=== PATIENT | female | born 1940 | race Caucasian/White ===

== ENCOUNTER 2021-02-13 02:31 | Emergency (ER) | payer OTHER ==
[~2021-02-13] VITALS: Ht 167.6 cm; Wt 83.9 kg
[2021-02-13 03:35] LABS: ABSOLUTE NEUTROPHILS 6.8 thou/uL (1.4-8.2); BASOPHILS 0.7 % (0.0-2.0); EOSINOPHILS 1.2 % (0.0-3.0); HEMATOCRIT 38.9 % (37.0-47.0); HEMOGLOBIN 12.9 gm/dL (12.0-15.0); MCH 27.7 pg (26.0-34.0); MCHC 33.3 g/dL (28.0-37.0); MCV 83.4 fL (80.0-100.0); MONOCYTES 6.2 % (1.0-8.0); PLATELET COUNT 208 thou/uL (150-400); POLYS 78.9 % (36.0-66.0); RBC 4.66 mil/uL (4.20-5.00); RDW 14.9 % (10.5-14.5); WBC 8.6 thou/uL (4.0-11.0)
[2021-02-13 03:44] LABS: CALCIUM 8.5 mg/dL (8.5-10.1); CREATININE 1.1 mg/dL (0.6-1.0)
[2021-02-13 03:50] LABS: ALBUMIN 3.5 g/dL (3.4-5.0); TOTAL BILIRUBIN 0.3 mg/dL (0.2-1.0); TOTAL PROTEIN 7.1 g/dL (6.4-8.2)
[2021-02-13 04:41] LABS: URINE BILIRUBIN NEGATIVE (Negative); URINE BLOOD NEGATIVE (Negative); URINE CLARITY CLEAR; URINE COLOR YELLOW; URINE GLUCOSE-RANDOM* NEGATIVE (Negative); URINE KETONES NEGATIVE (Negative); URINE LEUKOCYTES-REFLEX NEGATIVE (Negative); URINE NITRITE-REFLEX NEGATIVE (Negative); URINE PROTEIN (DIPSTICK) TRACE (Negative); URINE SPECIFIC GRAVITY >= 1.030 (1.005-1.035); URINE UROBILINOGEN 0.2 E.U./dl (0.2-1.0)
[2021-02-13 06:48] VITALS: BP 110/47
--- NOTE | 2021-02-13 07:14 | EKG ---
[address] [place] [address] ELECTROCARDIOGRAM REPORT Name: ROSALVA COREY Room #: [facility] MIKKI Betancourt#: [id number] Admission: 02/13/21 Attend Phys: Discharge: 02/13/21 Date of : 36 Report #: [id number] [facility] ED Test Date: 2021-02-13 Test Time: 03:03:43 Pat Name: ROSALVA COREY Department: Room: Gender: F Radio Division Captain: lindsey : 1940 Requested By: Bony Perez Order Number: [id number] MD: Dexter Freitas Measurements Intervals [place] Rate: 74 P: -1 OR: 216 QRS: 23 QRSD: 107 T: 31 QT: 390 QTc: 433 Interpretive Statements Sinus rhythm Borderline prolonged OR interval Probable left ventricular hypertrophy No previous ECG available for comparison Electronically Signed On 02-13-2021 7:14:08 CDT by Dexter Freitas [email or web address] <ELECTRONICALLY SIGNED> By: Dexter Freitas MD, [facility] 02/13/21 0714 [id number] Dexter Freitas MD, FACC /EPI
[2021-02-13] MEDS ORDERED: LOVASTATIN40 MG PO (11:15)
[2021-02-13] MEDS ORDERED: LEVOTHYROXINE50 MCG PO (11:15)
[2021-02-13] MEDS ORDERED: NORVASC5 MG PO (11:15)
== END 2021-02-13 06:49 | disposition still patient (30) ==
LOC: ER 02:31
PROVIDERS: Emergency Medicine
DX: F03.91 Unspecified dementia, unspecified severity, with behavioral disturbance (principal); I10 Essential (primary) hypertension; Z88.0 Allergy status to penicillin; Z20.822 Contact with and (suspected) exposure to COVID-19; Z88.2 Allergy status to sulfonamides; Z88.8 Allergy status to other drugs, medicaments and biological substances

== ENCOUNTER 2021-02-13 07:01 | Inpatient (IN) | payer OTHER ==
[~2021-02-13] VITALS: Ht 160 cm; Wt 63.8 kg
[2021-02-13 10:49] VITALS: BP 152/58
--- NOTE | 2021-02-13 10:53 | NUR ---
80 YEAR OLD FEMALE REPORTED BY PREVIOUS SHIFT TO ARRIVE TO FLOOR FROM ER AT 0700. VS OBTAINED AND ARE 152/76 P 87. ORIENTED TO NAME ONLY. UNABLE TO PROVIDE RELEVENT HISTORY. GAIT IS STEADY WITHOUT ASSITVE DEVICES. NO SKIN BREAKDOWN NOTED. IS RESTLESS UP AND DOWN FREQUENTLY PACING IN HALLWAYS-INTRUSIVE AT TIMES ENTERING OTHERS ROOMS BUT IS EASILY REDIRECTABLE. SON EARL BENITEZ DPOA CONTACTED VIA PHONE AND REPORTS THAT PT HAS BEEN AT [facility]INCE JANUARY 2021-HAS A HX OF DEMENTIA 5 YEARS AND THEY WERE UNAWARE PT WAS BEING TRANSFERED TO HOSPITAL. STATES MESSAGE ON PHONE FROM [facility] REPORT PT WAS THROWING THINGS AT STAFF AND PEERS LAST PM INCLUDING A FIRE EXTINGUISHER AND A WC. CONSENTS OBTAINED
[2021-02-13 11:06] LABS: CHOLESTEROL 174 mg/dL (<200); HDL CHOLESTEROL 92 mg/dL (>40); LDL CHOLESTEROL 69 mg/dL (<100); TC:HDL 1.9 Ratio (Not establshd); TRIGLYCERIDE 69 mg/dL (<150); VLDL 14 mg/dL (<40)
[2021-02-13 11:13] LABS: SERUM ASSESSMENT Clear
[2021-02-13] MEDS ORDERED: LOVASTATIN40 MG PO (11:15)
[2021-02-13] MEDS ORDERED: NORVASC5 MG PO (11:15)
[2021-02-13] MEDS ORDERED: LEVOTHYROXINE50 MCG PO (11:15)
--- NOTE | 2021-02-13 18:38 | NUR ---
HAS BEEN VISIBLE ON UNIT AMBULATING IN HALLWAYS OR SITTING IN DAYROOM WITH PEERS. WILL SIT FOR SHORT PERIODS OF TIME BUT APPEARS UNABLE TO SIT STILL FOR MORE THAN 5-10 MINUTES. WANDERING IN HALLWAYS -WILL STAND NEXT TO EXIT DOOR BUT NOT NOTED TO BE TRYING TO GET OUT. APPETITE IS GOOD-GAIT STEADY. CONVERSATION DISORGANIZED-RAMBLING AND NON-GOAL DIRECTED.
[2021-02-13 21:46] VITALS: BP 127/66
[2021-02-13 22:06] LABS: GLYCOHEMOGLOBIN (HGB A1C) 5.8 % (4.8-5.6)
--- NOTE | 2021-02-13 22:14 | NUR ---
02-13-21 CARE TRANSFERRED 0 OBSERVED PT WALKING IN HALLWAYS. RECEIVED REPORT FROM DIABETES NURSE PT REFUSED VS. PT PRESENTS CONFUSED AND REFUSES NURSING ASSESSMENT, OBSERVED NO S/S OF PAIN OR NO SI/HI BEHAVIORS. LATER PT WENT INTO ROOM 528 WAS HOLDING DOOR CLOSED, STAFF ENTERED PORT DOOR, PT WAS GRABBING AND SWINGING AT STAFF WHILE BEING HELPED OUT OF ANOTHER PT ROOM, PT STARTED TO SITDOWN ON FLOOR AND DIABETES NURSE CONTROLLED PT MOTION TO FLOOR. THIS CLOTH EXAMINER AND DIABETES NURSE ASSISTED PT BACK TO FEET AND BROUGHT PT TO DAY ROOM. PT REFUSED VS. HCP CONTACTED AND ORDERS RECEIVED, SECURIETY CALLED AND HCP Sary OGDEN D.O. ORDER ADMIN 10MG IM GEODON IN RIGHT DELTOID WITH HOLD, PT IN RECLINER AND LAPBUDDY AND 1:1 FOR PT SAFETY. HCP BURGLAR ALARM ASSEMBLER UPDATED ON PT SITTING ON FLOOR. LATER PT WAS CALM COOPERATIVE WITH VS B/P 127/66, P 98, R18, T 96.4, O2 SAT 96% RA RR EVEN AND NONLABORED. PT LUNGS CLEAR, HT RR, ABD SOFT AND ACTIVE.
[2021-02-14 09:11] VITALS: BP 154/71
--- NOTE | 2021-02-14 12:59 | NUR ---
Alert and very restless this AM. Pacing t/o unit and exit seeking. Did sit down for breakfast momentarily but then was very resistive to taking meds. Got up and was not redirectable to sit down again. Became exit seeking and then left unit when door was opened by staff from another floor. Held by EVS staff and then was resistant to coming back on unit requiring 2 staff members to escort into dining room. Placed in WC and then lap lewis placed d/t being resistant and wanting to sit on floor. Dr. Tamara taylor, 15 mg geodon given IM per order per R deltoid with manual restraint of 3 staff members. Calmed down with 15 min, lap lewis removed at 1000 and yellow shirt and chair alarm placed. Orientated to name only, denies SI/HI. Breath sounds clear. Reg HR auscultated. Color pink with brisk capillary refill and palpable peripheal pulses. No edema noted. Brief dry. Active bowel sounds over soft, rounded abdomen. Reg steady gait prior to becoming combative, placed on fall precautions d/t medications. Able to stand without difficulty during assessment. No documented BM since admission.
--- NOTE | 2021-02-14 13:23 | NUR ---
Consulted due to new admission to [facility]. Pt noted with BMI WNL, intakes variable with some refusals noted. Pt unable to track conversation during visit. Dx dementia, hx hallucinations. Other dx DM, HTN, CKD, GERD. On chopped diet r/t poor dentition. Will initiate supplement as precaution r/t meal refusals. Pt was able to say that she likes chocolate. Low nutrition risk at this time.
--- NOTE | 2021-02-14 15:09 | NUR ---
SAM contacted [facility] and introduced self. She also obtained their fax number to send updates to [phone]. Staff said that they would like pt to be less combative and also get more sleep at night. They said she sleeps very little. SAM contacted Adonay moore on file, and it belongs to a business. SAM contacted Mylene's number and spoke to Shankar's . She said that is actually Shankar's number which is [phone]. SAM asked to speak to Shankar but was told he is driving at the moment. SAM asked what his email is so she can send to him a welcome email and was told that is his. SAM team will continue to follow pt during his stay on this unit.
[2021-02-14 20:47] VITALS: BP 148/77
--- NOTE | 2021-02-15 05:56 | NUR ---
02-14-21 CARE TRANSFERRED 0 OBSERVED PT WALKING IN HALLWAY. LATER PT AAOX1, VSS, RR EVEN AND NONLABORED ON RA, PT PRESENTS CONFUSED, PT DENIES PAIN AND SI/HI, OBSERVED S/S OF PAIN AND NO BEHAVIORS OF SI/HI. PT HAS BEEN WANDERING INTO OTHER PT ROOMS, BUT HAS BEEN EASILY REDIRECTED BACK TO DAY ROOM. DURING MEDICATION PT REFUSED MEDICATION, 2ND ATTEMPT WAS SUCCESSFUL. LATER PT BECAME INTRUSIVE INTO OTHER PT ROOM AND BECAME AGITATED WHEN TRYING TO REDIRECTED TO DAY ROOM, HITTING AT STAFF. HCP Chiquis KEYS NP CONTACTED AND ORDERS RECEIVED, HCP ORDERS ADMIN. LATER NOTED PT CALM AND EASILY ASSISTED BY STAFF TO BATHROOM. PT WILL CONTINUE TO BE MONITOR PER [facility] PROTOCOL.
[2021-02-15 09:51] VITALS: BP 123/57
--- NOTE | 2021-02-15 11:18 | NUR ---
PATIENT WAS UP IN GERICHAIR SLEEPING WHEN CARE ASSUMED, EASILY AROUSABLE BUT NOT AWAKE ENOUGH TO TAKE MORNING MED, OR EAT BREAKFAST. PATIENT LATER WOKE-UP, MORNING MEDS GIVEN IN YOGOURT, WELL TOLERATED. PATIENT ATE BREAKFAST, ASSISTED BY STAFF. PATIENT DENIES SUICIDAL IDEATION, NOT COGNITIVE ENOUGH TO APPROPRIATELY RESPOND TO FURTHER ASSESSMENT QUESTIONS DUE TO COGNITIVE IMPAIRMENT. PATIENT CURRENTLY FULLY AWAKE, FAMILY VISITING. AFFECT IS FLAT/BLUNTED, MOOD IS CALM AT THIS TIME, NO AGITATION OR AGGRESSIVE BEHAVIOR NOTED AT THIS TIME, NO SIGN OF ACUTE DISTRESS NOTED, WILL CONTINUE TO REDIRECT, AND MONITOR FOR SAFETY.
[2021-02-15 12:14] LABS: CALCIUM 9.1 mg/dL (8.5-10.1); CREATININE 1.1 mg/dL (0.6-1.0); POTASSIUM 3.9 mmol/L (3.5-5.1)
[2021-02-15 19:15] VITALS: BP 155/56
--- NOTE | 2021-02-16 06:38 | NUR ---
02-15-21 CARE TRANSFREDD AT 1900 OBSERVED PT UP AD MAX WALKING IN UNIT. LATER PT AAOX1, VSS, RR EVEN AND NONLABORED ON RA. PT DENIES PAIN AND SI/HI AND OBSERVED NO S/S OF PAIN OR NO SI/HI BEHAVIORS. LATER PT WAS WALKING ON PANTS AND TRANSCRIBING MACHINE OPERATOR WAS TRYING TO ASSIST AND PT BECAME COMBATIVE, PT PANTS WERE CUFFED AND PT WAS REDIRECTED TO DAY ROOM. DURING MEDICATION ADMIN PT REFUSED MEDICATION. NOTED PT WANDERING INTO ANOTHER ROOM AND PT AGAIN WAS REDIRECTED TO DAY ROOM. THEN PT WENT INTO ANOTHER PT ROOM AND WAS HOLDING DOOR CLOSED, WAS ABLE TO ENTER AND BROUGHT PT TO DAY ROOM, SECURITY RESPONSED. HCP Gold HAGEN CONTACTED AND ORDERS RECEIVED AND ADMINMARIE FOR PT SAFETY THEN LATER TAKEN OFF, WHEN PT WAS CALM. PT WILL CONTINUE TO BE MONITOR PER [facility] PROTOCOL.
[2021-02-16 08:00] VITALS: BP 124/71
[2021-02-16 19:31] VITALS: BP 132/49
[2021-02-16 21:20] VITALS: BP 132/49
--- NOTE | 2021-02-17 04:09 | NUR ---
PATIENT IS ALERT AND SHE IS AMBULATES . ABLE TO VERBALIZE SOMS CONCERNS. SHE DENIES PAINS/SI/AVH/HI. LUNGS ARE CLEAR BS ACTIVE X4 QUAD. ABD IS SOFT FLAT AND NON TENDER. SHE TOOK HER MEDS WHOLE AND. BED IS LOW, LOCKED,AND ALARMED. SHE IS CONFUSED AND DIFFICULT TO BE DIRECTED. SHE HAS A YELLOW SOCK AND TOP ON. Q 12 MINUTES CHECK IS ON GOING.
[2021-02-17 08:41] VITALS: BP 147/61
--- NOTE | 2021-02-17 09:07 | NUR ---
Yesterday SW faxed updates to [facility] for pt. SW team will continue to follow pt during her stay on this unit.
--- NOTE | 2021-02-17 18:38 | NUR ---
0700 ASSUMED CARE OF PATIENT, PATIENT IN CAMILA CHAIR AT THAT TIME. PATIENT CALM AND COOPERATIVE, BS ACTIVE, NO C/O PAIN. MEDICATION TAKEN WHOLE WITHOUT DIFFICULTY. PATIENT ATE 25% OF BREAKFAST WITHOUT ASSISTANCE AND FEW MORE BITES WITH ASSISTANCE. PATIENT UP AMB WITH STANDBY ASSIST. PATIENT WITH YELLOW SHIRT ON AND FALL PRECAUTIONS IN PLACE.
[2021-02-17 19:18] VITALS: BP 116/71
[2021-02-17 22:12] VITALS: BP 116/71
--- NOTE | 2021-02-17 22:29 | NUR ---
Pt is alert to self but disoriented to time and place. Pt wants to go home and voiced that several times this evening. Pt initially did not want to take her medication but eventually decided to take them whole with water. Pt walks ad jamison and is impulsive making her a high fall risk. Pt is incontinent but will if taken to the bathroom she will go. Pt requires frequent redirection and monitoring. Pt affect is pleasantly confused with anxiety. Denies SI/HI/AH/VH. will continue to monitor
--- NOTE | 2021-02-18 02:54 | NUR ---
Pt is real anxious with agitation, wandering into other patients rooms, not able to redirect. Going to exit doors and pulling on them. Earlier in the shift pt was pleasant and easily redirected. Pt offered toileting since she was wandering into other rooms and she was also offered something to drink. Telephone call to Dr. Maldonado to see what next options are.
--- NOTE | 2021-02-18 06:25 | NUR ---
Dr. Maldonado called back about 430am and by then pt was sitting chair at baseline in regards to behavior did discuss that pt is on low dose risperidone may need to look at her medications. Pt does not sleep at night but she did sleep for about 1/2 hour to 1 hour and during 6 am medication pass she was very pleasant and cooperative with this nurse and took her medication just fine w/o any difficulty.
[2021-02-18 10:00] VITALS: BP 130/67
--- NOTE | 2021-02-18 17:49 | NUR ---
0700 ASSUMED CARE OF PATIENT, PATIENT IN DAYROOM AT THAT TIME. PATIENT IN CAMILA CHAIR AT TABLE, CALM AND QUIET. PATIENT REFUSED BREAKFAST SLEEPING ON AND OFF AT THAT TIME. MEDICATIONS GIVEN WITH SOME DIFFICULTY PATIENT CONFUSED AND NEEDING DIRECTIONS TO TAKE MEDS. LS CLEAR, BS ACTIVE. PATIENT AMB WITH UNSTEADY GAIT AT TIMES STAND BY ASSIST NEEDED. FALL PRECAUTIONS IN PLACE. 1845 PATIENT ASSISTED TO BR VOIDED AT THAT TIME, TO BED TO REST X 7 MIN THEN UP AMBULATING IN ANSARI WANDERING IN OTHERS ROOMS. PATIENT OUT TO DAYROOM SITTING QUIETLY.
[2021-02-18 20:08] VITALS: BP 161/74
[2021-02-19] VITALS: BP 161/74
--- NOTE | 2021-02-19 01:07 | NUR ---
02/18/21 - Pt is alert to self, pleasant, took her medications in ice cream. Pt at the beginning of shift was wandering and pacing the hallway and dining room but with the direction of nurse and PCT pt was encouraged to lay in bed and try to sleep. Pt appears to be sleeping as of 2129 with frequent checks. Denies SI/HI/AV/HV. will continue to monitor.
[2021-02-19 08:59] VITALS: BP 146/60
[2021-02-19 09:43] VITALS: BP 146/60
--- NOTE | 2021-02-19 10:58 | NUR ---
1050 RESUMMED CARE FROM OVERNIGHT SHIFT THIS AM, PATIENT IN ROOM QUIET. WE GOT PT UP FOR BREAKFAST AND SHE WALKED USING HER WC AND STAND BY ASSIST TO DAY ROOM. PATIENT STATES HER LEGS FELT LIKE THEY WERE GOING TO GIVE OUT; I EXPLAINED TO PATIENT SHE HAS TO WALK MORE OFTEN TO HELP GET HER MUSCLES FROM BEING TENSE. PATIENT DENIES SI/HI/AH/VH AT PRESENT PATIENTS ABDOMEN SOFT BOWEL SOUNDS PRESENT. PATIENTS LUNGS CLEAR PATIENT PARTICPATES IN GROUPS PATIENT ALERT ORIENTED TIMES 4 WILL CONTINUE TO MONITOR PATIENT FOR SAFETY AND BEHAVIORS.
[2021-02-19 19:48] VITALS: BP 158/72
--- NOTE | 2021-02-19 21:46 | NUR ---
ASSUMED PATIENT CARE AT 1900. SITTING IN DAY AREA CONVERSING WITH ANOTHER PATIENT AT THAT TIME. NO S/S OF DISTRESS OR DISCOMFORT. TOOK SEVERAL PROMPTS TO TAKE MEDICATIONS, PATIENT WOULD GET DISTRACTED WHILE HOLDING MED CUP AND SEEM TO FORGET WHAT SHE WAS DOING. SHE DID TAKE THEM WHOLE WITHOUT DIFFICULTY SWALLOWING THEM. WANDERS AT TIMES THOUGH IS REDIRECTABLE.
[2021-02-20 08:56] VITALS: BP 103/50
--- NOTE | 2021-02-20 11:00 | NUR ---
RT Progress Note- Nina has made steady progress towards her recreation therapy goal of decreased restlessness and agitation. She is able to remain present in most RT groups without the need to wander. At times she does require redirection to remain seated. Participation remains moderate as she is cognitively impaired,however Nina does put effort towards socializing with peers in groups and in the milieu at meal times. She has not displayed aggression during interactions with recreational therapists. RT will continue to encourage progress towards goals.
--- NOTE | 2021-02-20 13:28 | NUR ---
RESTING IN GERICHAIR IN DAYROOM UPON INITIAL ASSESSMENT AT 0745 THIS AM-WAS ROUSABLE TO VERBAL STIMULI BUT QUICKLY FALLS BACK TO SLEEP. AM MEDS HELD UNTIL APPROX 1030 WHEN AWAKE AND RESPONSIVE-EATING BREAKFAST. CONVERSATION DISORGANIZED,RAMBLING,NON-GOAL DIRECTED. ORIENTED TO NAME ONLY. DOES VOID PER TOILET X2 SO FAR THIS SHIFT WHEN TAKEN TO BR BY STAFF.APPEARS TO BE HALLUCINATING-TALKING TO UNSEEN PERSON IN DAYROOM AT LUNCH-WHEN ASKED STATES "I DON'T KNOW HER NAME SHE IS MY FRIEND SITTING RIGHT HERE"RESTLESS AFTER LUNCHCONSTANTLY MOVING HANDS AND FEET. GIVEN LAUNDRY TO FOLD AND THIS SEEMS TO DISTRACT HER AND KEEP HER FROM ATTEMPTING TO GET UP ON OWN. GAIT IS STEADY WITHOUT ASSISTIVE DEVICES HOWEVER IS REPORTED TO HAVE HAD RECENT FALL SO REMAINS ON FALL PRECAUTIONS
[2021-02-20 20:00] VITALS: BP 103/50
--- NOTE | 2021-02-21 00:19 | NUR ---
PATIENT CARE WAS RESUMED AT 1900. SHE IS ALERT AND ORIENTED. SITTING IN THE DAY AREA. CALM AND CO-OPETRATIVE WITH CARE. SHE DENIES SI/AVH/HI. SHE COMPLAINED OF PAINS TO HER LOWER EXTREMITIES AND PRN PAIN MED WAS GIVEN WITH GOOD EFFECT.LUNGS ARE CLEAR BS ACTIVE X4 QUADS. ABLE TO VERBALIZE HER NEEDS SHE TOOK HER MEDS WHOLE AND WAS ASSITED TO BED. BED IS LOCKED, LOW AND ALARMED. SHE SI CONTINET OF BOWEL AND BLADDER BUT NEED ASSISTANCE WITH BAKARI-CARE DUE TO FORGETFULNESS. Q 12MINUTES CHECK IS ONGOING CONTINUE CARE.
[2021-02-21 09:17] VITALS: BP 142/69
--- NOTE | 2021-02-21 10:13 | NUR ---
PT ALERT TO SELF ONLY. VSS. PT DENIES SI/HI/AH/VH/PAIN/SOA. PT INTERACTS WELL WITH STAFF LITTLE INTERACTION WITH PEERS. PT DID ATTEND GROUPS THIS SHIFT. PT TOLERATES MEDS AND MEALS. WILL CONTINUE TO MONITOR.
--- NOTE | 2021-02-21 10:14 | NUR ---
Follow up: Pt noted with imroved intake at meals and avg intake >50% yesterday and today. Staff reports she will eat well if continuosly fed, but takes a long time to chew the foods and a meal could take >1 hour. Intake of supplement <25%. Staff mentioned finger foods might be beneficial as pt will sometimes pickers material handlers foods and eat with hands. Rarely, if ever, initiates eating/drinking without prompting. Weight has remained stable x 5 days. Riperidone increased recently d/t behaviors. Remains low nutrition risk.
[2021-02-21 19:16] VITALS: BP 128/70
[2021-02-21 20:20] VITALS: BP 128/70
[2021-02-22 10:51] VITALS: BP 119/71
--- NOTE | 2021-02-22 11:41 | NUR ---
PATIENT HAS BEEN UP, AND OUT ON THE UNIT, SHE IS ALERT, AND ORIENTED X 1, SHE IS FORGETFUL, AND CONFUSED. PATIENT TOOK MEDICATION CRUSHED IN PUDDING WITH LOTS OF ENCOURAGEMENT. PATIENT DENIES SUICIDAL/HOMICIDAL IDEATION. PATIENT NOT ABLE TO APPROPRIATELY RESPOND TO FURTHER ASSESSMENT QUESTIONS DUE TO COGNITIVE IMPAIRMENT. PATIENT IS EATING MEALS, AND DRINKING FLUID FAIRLY WELL, ABLE TO FEED SELF. PATIENT HAS BEEN CALM, COOPERATIVE WITH CARE. NO AGITATION OR AGGRESSIVE BEHAVIOR NOTED AT THIS TIME, WILL CONTINUE TO REDIRECT, AND MONITOR FOR SAFETY.
--- NOTE | 2021-02-22 12:47 | NUR ---
SAM faxed updates to [facility]. SAM contacted Tammy at [phone] and provided a verbal update. SAM and Tammy arranged discharge for pt on 02/24 @10am. Tammy asked that pt have a COVID test, have transportation arranged, and the pharmacy is [facility] [phone]. SAM contacted [facility] [place] and arranged transportation. Tracking number is [id number]. SAM team will continue to follow pt during her stay on this unit.
[2021-02-22 22:30] VITALS: BP 119/71
--- NOTE | 2021-02-23 03:36 | NUR ---
PATINET CARE WAS RESUMED AT 1900. SHE WAS SITTING IN THE DINING AREA WITH OTHER PATINETS. SHE SI ALERT WITH CONFUSSION. SHE IS CONTINET IF BOWEL AND BALDDER. SHE AMBUALTES , SHE HAS A YOLLOEW TOP, SOCK, BED ALARM IS ACTIVATED, SHE DENIES SI/AI/ HI. SHE TOOK HER MEDS WHOLE AND SPIT SOME MED BACK INTO THE CUP. BS ACTIVE 4 QUADS AND SHE IS IN BED SLEEPING AT THIS TIME. Q 12MINTES CHECK AT THIS TIME IS ON GOING
[2021-02-23 08:58] VITALS: BP 168/75
--- NOTE | 2021-02-23 16:03 | NUR ---
Assumed pt care at 0700. pt was in the day room resting. Pt was alert and oriented to person. calm and cooperative with assessments. Assessments completed, vss. pt is confused. No sign of acute distress noted upon assessments. No sign of si/hi, no c/o of pain at this time. PT took her meds crushed, no difficulty noted. AMbulates with a steady gait. Wanders the unit. incontinent x3 this shift. AT this time pt is in the day room watching TV. will continue to monitor.
[2021-02-23 19:53] VITALS: BP 156/83
--- NOTE | 2021-02-23 23:31 | NUR ---
PATIENT CARE ASSUMED AT 1900, NO S/S OF DISTRESS OR DISCOMFORT. PATIENT PLEASANTLY WANDERED AROUND, TOOK MEDS CRUSHED IN ICE CREAM WITHOUT DIFFICULTY. NO BEHAVIORS THIS EVENING. WILL MONITOR.
[2021-02-24 08:19] VITALS: BP 142/70
[2021-02-24] MEDS ORDERED: DEPAKOTE SPRIN125 MG PO (09:37)
[2021-02-24] MEDS ORDERED: TRAZODONE HCL50 MG PO (09:38)
[2021-02-24] MEDS ORDERED: RISPERIDONE 00.25 MG PO (09:38)
[2021-02-24] MEDS ORDERED: PROTONIX 20 MG20 M1 PO (09:38)
--- NOTE | 2021-02-24 10:14 | NUR ---
PT RESTING COMFORTABLY IN REC ROOM. PT AFEBRILE, NO BM, APPROPRIATE APPETITE, TOOK MEDICATIONS WITHOUT ISSUE. REPORT CALLED TO RECEIVING RN AT MORNING [facility]IDE [facility] FACILITY. PT PICKED UP BY [facility] AT 1015. PAPERWORK AND BELONGINGS GIVEN WITH TRANSPORT. PT HAS BEEN THOUROUGHLY UPDATED AND EDUCATED ON PT CONDITION AND POC. PT PROGRESSED TO POC.
--- NOTE | 2021-02-24 15:24 | NUR ---
SW D/C Note SW faxed discharge docs to [facility]. SW will file confirmaiton in pt's hospital file. No other needs for SW team to address at this time.
--- NOTE | 2021-02-25 19:09 | D ---
[facility] [place] [address] DISCHARGE SUMMARY Name: ROSALVA COREY Room #: 521A-A DIS IN M.R.#: [id number] Admission: 02/13/21 Attend Phys: Wilmer Mcdonald DO Discharge: 02/24/21 Date of : 36 Report #: [id number] THIS REPORT FOR: cc: Chon Klein MD, Christopher B. MD Kerstein, Andrew H. DO ~ PSYCHIATRIC DISCHARGE SUMMARY ATTENDING PSYCHIATRIST: Wilmer Mcdonald DO JUKEBOX OPERATOR: Fred Romero M.D. 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 Medical comorbidities include mild renal failure, improved, hypertension, hypothyroidism, gastroesophageal reflux disease, DNR. The patient was discharged to [facility] [place], psychiatric and general medical care are provided by receiving facility. DISCHARGE MEDICATIONS: 1. Levothyroxine 50 mcg oral daily at 0700. 2. Amlodipine 5 mg oral daily for hypertension. 3. Depakote sprinkles 500 mg oral at 0900 and 2100 for mood stabilization. 4. Trazodone 100 mg oral at bedtime for sleep. 5. Risperidone 0.5 mg oral at 12 and 2000 for impulse control. 6. Pantoprazole 20 mg oral daily for GERD. LABORATORY DATA: Significant laboratories this admission, hematology from 02/13/2021, H and H 12.9 and 38.9, white count 8.6, platelet count 208. Chemistry: Sodium 145, potassium 3.9, chloride 106, bicarbonate 27, BUN 34, creatinine 1.1, estimated GFR 48. Hemoglobin A1c is 5.8, calcium 9.1, total bilirubin 0.3, AST 14, ALT 17, alkaline phosphatase 69, total protein 7.1, albumin 3.5, triglycerides 69, cholesterol 174, LDL 69, HDL 92. Urinalysis showed trace protein. Toxicology, Depakote level on 02/18/2021 of 87. COVID-19 serology was negative on 02/22/2021. REASON FOR ADMISSION: Back on 02/14/2020, an 80-year-old female sent out from assisted living memory care facility. The patient was thinking she was kidnapped and kicking at staff. She threw a fire extinguisher in wheelchair. HOSPITAL COURSE: The patient was admitted to Geriatric Psychiatry Unit. The patient's behavior was fairly stable during the admission. Depakote was initiated, titrated to therapeutic blood level. She did have some sundowning noted in the late p.m. and at nighttime around 10:00 p.m. to 1:00 a.m. Elected to start risperidone, which I started at 0.25 b.i.d. with time skewed towards the [facility] [address] [place] [address] DISCHARGE SUMMARY Name: ROSALVA COREY Room #: 521A-A DIS IN M.R.#: [id number] Admission: 02/13/21 Attend Phys: Wilmer Mcdonald DO Discharge: 02/24/21 Date of : 36 Report #: [id number] later parts of the day and increased to 0.5 mg twice daily. This proved to be efficacious regimen. Family meeting was held with the patient's son and daughter. They were in agreement with this course of management given her quite limited life expectancy. PHYSICAL EXAMINATION: VITAL SIGNS: On day of discharge, temperature 97.4, pulse 109. Actually this was done yesterday evening, respirations 17, BP 142/70 in the morning of discharge. MUSCULOSKELETAL: normal station, slow gait, wearing yellow fall prevention shirt. MENTAL STATUS EXAMINATION: A well-developed, ill-appearing female apparently looked stated age. Attention limited. Concentration impaired. Speech soft, normal rate. Thought process linear. Very limited thought content, generally, confused but pleasant. Denied SI, HI. Denied auditory, visual, or tactile hallucinations. Mood and affect congruent, euthymic. Insight and judgment impaired. Memory not formally tested but known to be impaired. Fund of knowledge diminished. Prognosis for this patient is guarded to poor given age of 80 and having a neurodegenerative disorder. <ELECTRONICALLY SIGNED> By: Wilmer Mcdonald DO 02/25/211908 26 19 Wilmer Mcdonald DO /nt
== END 2021-02-24 10:13 | DRG 57 ==
LOC: SBH 07:01
PROVIDERS: Hospitalist; ADMIT Psychiatry & Neurology Psychiatry; ATTEND Psychiatry & Neurology Psychiatry
DX: G30.9 Alzheimer's disease, unspecified (principal); F01.51 Vascular dementia, unspecified severity, with behavioral disturbance; F02.81 Dementia in other diseases classified elsewhere, unspecified severity, with behavioral disturbance; Z20.822 Contact with and (suspected) exposure to COVID-19; E03.9 Hypothyroidism, unspecified; K21.9 Gastro-esophageal reflux disease without esophagitis; Z66 Do not resuscitate; F41.9 Anxiety disorder, unspecified; I12.9 Hypertensive chronic kidney disease with stage 1 through stage 4 chronic kidney disease, or unspecified chronic kidney disease; E11.22 Type 2 diabetes mellitus with diabetic chronic kidney disease; F39 Unspecified mood [affective] disorder; I25.10 Atherosclerotic heart disease of native coronary artery without angina pectoris; Z88.0 Allergy status to penicillin; Z88.2 Allergy status to sulfonamides
CPT/HCPCS: 10880

== ENCOUNTER 2021-03-19 13:31 | Emergency (ER) | payer OTHER ==
[~2021-03-19] VITALS: Ht 167.6 cm; Wt 83.9 kg
[~2021-03-19 13:31] MED LIST: DEPAKOTE SPRIN125 MG PO; LEVOTHYROXINE50 MCG PO; LOVASTATIN40 MG PO; NORVASC5 MG PO; PROTONIX 20 MG20 M1 PO; RISPERIDONE 00.25 MG PO; TRAZODONE HCL50 MG PO
[2021-03-19 13:56] LABS: ABSOLUTE NEUTROPHILS 4.6 thou/uL (1.4-8.2); BASOPHILS 0.3 % (0.0-2.0); EOSINOPHILS 1.3 % (0.0-3.0); HEMATOCRIT 34.8 % (37.0-47.0); HEMOGLOBIN 11.6 gm/dL (12.0-15.0); LYMPHOCYTES 10.6 % (24.0-44.0); MCH 28.1 pg (26.0-34.0); MCHC 33.4 g/dL (28.0-37.0); MCV 83.9 fL (80.0-100.0); MONOCYTES 7.2 % (1.0-8.0); PLATELET COUNT 171 thou/uL (150-400); POLYS 80.6 % (36.0-66.0); RBC 4.14 mil/uL (4.20-5.00); RDW 15.6 % (10.5-14.5); WBC 5.7 thou/uL (4.0-11.0)
[2021-03-19 14:01] LABS: CALCIUM 8.3 mg/dL (8.5-10.1); CREATININE 1.2 mg/dL (0.6-1.0); POTASSIUM 4.3 mmol/L (3.5-5.1)
[2021-03-19 14:08] LABS: ALBUMIN 3.2 g/dL (3.4-5.0); TOTAL BILIRUBIN 0.4 mg/dL (0.2-1.0); TOTAL PROTEIN 6.4 g/dL (6.4-8.2)
[2021-03-19 14:27] LABS: URINE BILIRUBIN NEGATIVE (Negative); URINE BLOOD NEGATIVE (Negative); URINE CLARITY CLEAR; URINE COLOR YELLOW; URINE GLUCOSE-RANDOM* NEGATIVE (Negative); URINE KETONES 1+ (Negative); URINE NITRITE-REFLEX NEGATIVE (Negative); URINE PROTEIN (DIPSTICK) NEGATIVE (Negative)
[2021-03-19 14:30] LABS: URINE LEUKOCYTES-REFLEX 2+ (Negative)
[2021-03-19 14:41] LABS: SQUAMOUS >10 Many /LPF (0-3)
[2021-03-19 14:42] LABS: CASTS None Seen /LPF (None Seen); CRYSTALS None Seen /LPF (None Seen); MUCUS >6 Heavy strn/LPF (None Seen); URINE RBC 1-2 Rare /HPF (NONE SEEN)
[2021-03-19] MEDS ORDERED: CIPROFLOXACIN500 M1 PO (15:16)
[2021-03-19 18:04] VITALS: BP 124/71
--- NOTE | 2021-03-20 07:30 | EKG ---
[place] [address] [place] [address] ELECTROCARDIOGRAM REPORT Name: ROSALVA COREY Room #: [facility] MIKKI Betancourt#: [id number] Admission: 03/19/21 Attend Phys: Discharge: 03/19/21 Date of : 36 Report #: [id number] [facility] ED Test Date: 2021-03-19 Test Time: 13:57:30 Pat Name: ROSALVA COREY Department: Room: Gender: F Linter Operator: DARBY : 1940 Requested By: Bony Perez Order Number: [id number] MD: Dexter Freitas Measurements Intervals Bee Rate: 83 P: -53 TX: 172 QRS: 13 QRSD: 96 T: 22 QT: 360 QTc: 423 Interpretive Statements Sinus or ectopic atrial rhythm Compared to ECG 02/13/2021 03:03:43 Ectopic atrial rhythm now present Sinus rhythm no longer present Electronically Signed On 03-20-2021 7:30:41 CDT by Dexter Freitas [email or web address] <ELECTRONICALLY SIGNED> By: Dexter Freitas MD, [facility] 03/20/21729 1357 1357 Dexter Freitas MD, FACAlexia /EPI
== END 2021-03-19 18:05 | disposition home or self-care (01) ==
LOC: ER 13:31
PROVIDERS: Emergency Medicine
DX: N39.0 Urinary tract infection, site not specified (principal); E86.0 Dehydration; F03.90 Unspecified dementia, unspecified severity, without behavioral disturbance, psychotic disturbance, mood disturbance, and anxiety; F41.9 Anxiety disorder, unspecified; N18.9 Chronic kidney disease, unspecified; K21.9 Gastro-esophageal reflux disease without esophagitis; E11.22 Type 2 diabetes mellitus with diabetic chronic kidney disease; I12.9 Hypertensive chronic kidney disease with stage 1 through stage 4 chronic kidney disease, or unspecified chronic kidney disease; E03.9 Hypothyroidism, unspecified; Z79.899 Other long term (current) drug therapy; Z88.0 Allergy status to penicillin; Z20.822 Contact with and (suspected) exposure to COVID-19; Z88.8 Allergy status to other drugs, medicaments and biological substances